=== PATIENT | female | born 2000 | race Hispanic/Latino ===

== ENCOUNTER 2019-06-18 10:03 | Inpatient (IN) | payer MEDICAID, OTHER, SELFPAY ==
[~2019-06-18 10:03] MED LIST: Bupivacaine/Epinephrine 0.25% 30 ML VIAL ONE
[2019-06-18] MEDS ORDERED: hydrALAZINE 20 MG/ML VIAL SLOW IVP PRN ×2 (11:41→12:09)
[2019-06-18] MEDS ORDERED: Lidocaine 1% (PF) 30 ML VIAL ONE ×2 (11:46→22:04)
--- NOTE | 2019-06-18 12:05 | PDOC.FPROB ---
FMR OB H&P: HPI - History of Present Illness Chief Complaint: Contractions, vaginal bleeding History of Present Illness: 19yo @ 37.3 by LMP c/w 17.5wk cooper presents for contractions and vaginal bleeding since 1000 yesterday. Pt states contractions are a pelvic pressure that radiates to the flanks, occurring initially every few minutes but has spaced to every 5 minutes and now stable at that time for the past few hours. Also endores vaginal bleeding, described as less than her period but with clots and constant. No LOF. Endorses good movement. Endorses a slight TRISTAN, similar to past TRISTAN's, no vision changes, no acute SOB, no CP, n/v/d/c, fever/chills. Was last seen at [facility] on Saturday for US, was told baby was head down and had descended from previous ultrasounds. No New partners since conception, no recent sexual intercourse, no history of STI's. Primary Care Physician: [facility] Silvia Mcbride FMR OB H&P: Current - Care : 1 Para: 0 Gestational age: 37.3 Due date: 07/06/19 Dating Criteria: LMP c/w 17.5wk sono Course/Complications: BV x1 Anemia of - OB Labs Blood type: O RH: positive Antibody Screen: negative HIV: negative RPR: negative HepBsAg: negative Rubella: immune Urine drug screen: negative Gonorrhea: negative Chlamydia: negative Pap Smear: NILM 02/23/19 1 hour gtt: 90 GBS: negative H&H: 10.3 on 03/24/19 - Additional Ultrasound Additional: March posterior placenta, [place] 33.8% US today - Vertex with Occipital Maternal left FMR OB H&P: History - Past Medical History PMH: None - OB History OB History: None - 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 Denies EtOH, tob, illicit use. - Family History Family History: First degree relative with T21. Otherwise no history of complications or pediatric illnesses. FMR OB H&P: Medications - Current Home Medications: Medication Instructions Recorded Confirmed Type Pnv72/Iron,Gluc/Folic/Dss/Dha 1 tab PO DAILY 06/18/19 06/18/19 History [Citranatal 90 DHA Combo Pack] Allergies/Adverse Reactions: Allergies Allergy/AdvReac Type Severity Reaction Status Date / Time No Known Allergies Allergy Verified 06/18/19 12:35 FMR OB H&P: ROS - Review of Systems General: denies: fever/chills, weight/appetite/sleep changes, fatigue Eyes: denies: vision changes, double vision ENT: denies: nasal congestion, rhinorrhea, sore throat Cardiovascular: denies: chest pain, palpitation, edema Respiratory: reports: shortness of breath (chronic progession during , no acute changes). 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 pain radiates to flanks). denies: incontinence, dysuria, polyuria, hesitancy Neurologic: denies: numbness, syncope, seizures Integumentary: denies: rash FMR OB H&P: Vital Signs - Maternal Vital signs: BP 132/81, HR 86, RR 18, 98% on RA, 98.7F - Heart Tones Baseline: 140 Variability: moderate Acceleration: present Deceleration: absent Category: category 1 [place] contractions every: 5min FMR OB H&P: Physical Exam - Physical Exam General: NAD, awake, alert and oriented (resting and breathing throught contractions) HEENT: MMM, conjunctiva clear Neck: supple, trachea midline Heart: RRR, normal S1/S2, no murmurs/rubs/gallops, pulses present, no edema General: CTAB, no respiratory distress, good air movement, no rales/rhonchi, no wheezing Abdomen: soft, gravid, non-tender, bowel sound present, no masses Musculoskeletal: normal gait and station, other (soreness of paraspinal muscles on palpation) Neurological: no tremor, no focal deficit Skin: no rash Lymphatic: no unusual bruising or bleeding - Pelvic Exam SVE: /-1 Membranes: intact FMR OB H&P: A/P - Problem List (1) Intrauterine Current Visit: Yes Status: Acute Code(s): Z34.90 - ENCNTR FOR SUPRVSN OF NORMAL , UNSP, UNSP TRIMESTER Disposition: 19yo @ 37.3 by LMP c/w 17.5wk sono presents for contractions and vaginal bleeding since 1000 on 06/17. #SIUP, latent labor - @ 37.3 by LMP c/w 17.5wk sono - Regular painful contractions q5min since 1000 yesterday with bloody show - GBS negative, labs unremarkable - Cat 1 FHT, accels, baseline 140, moderate variability, no decels - /-1 @1145, next check at 1545 - Bedside US - Vertex with occiput maternal left - desires epidural - Will admit for labor management, routine labor admission labs, will monitor FHT and maternal vitals #Anemia of - Hb 10.3 on 03/24/19 - Admit H/H pending, will monitor especially after delivery #h/o BV - tx'ed during - repeat testing negative, no new sxs #Family history of T21 - first degree relative with T21, no genetic screening performed. Referred to [facility], no records of visit. Normal US in past - will monitor at delivery #Recent immigrant from [facility] - Unknown TB status, PCP recommended testing, no sxs, will need f/u post- Dispo: Admit for expectant labor management Fluids: LR @125cc/hr Code: Full Diet: NPO with ice chips Discussed plan with Dr. Deshpande
[2019-06-18] MEDS ORDERED: Ondansetron PF 4 MG/2 ML Vial IVP PRN ×2 (12:09→18:49)
[2019-06-18] MEDS ORDERED: Promethazine HCl 25 MG/ML VIAL IM PRN ×2 (12:09→18:49)
[2019-06-18 12:23] LABS: Hemoglobin 12.7 g/dL (12.0-16.0); Mean Corpuscular HGB CONC 34.4 g/dL (32.0-36.0); Mean Corpuscular Hemoglobin 30.4 pg (27.0-31.0); Mean Corpuscular Volume 88.4 fL (78.0-98.0); Mean Platelet Volume 10.2 fL (7.4-10.4); Platelet Count 206 thou/uL (130-400); RBC Distribution Width 11.8 % (11.5-14.5); Red Blood Cell (RBC) Count 4.17 mill/uL (4.20-5.40); White Blood Cell (WBC) Count 9.9 thou/uL (4.8-10.8)
[2019-06-18] MEDS ORDERED: Butorphanol Tartrate 1 MG/ML VIAL ONE (12:27)
[2019-06-18] MEDS ORDERED: NS / Oxytocin 40 units/1000ml 1,000 ML IV PRN (12:27)
[2019-06-18] MEDS ORDERED: Lidocaine 1% (PF) 30 ML VIAL SC PRN (12:27)
[2019-06-18] MEDS ORDERED: Lidocaine 1% (PF) 30 ML VIAL SC SCH (12:30)
[2019-06-18 12:39] VITALS: BMI 25.9
[2019-06-18 13:06] LABS: HBSAg Index 0.12 S/CO (0-0.99); Hep B Surf Ag Non-Reactive S/CO (NonReactive)
[2019-06-18 13:07] LABS: Syphilis Antibody Nonreactive (Nonreactive); Syphilis Antibody Index 0.04 S/CO (<1.00 Non-Reactive)
[2019-06-18] MEDS ORDERED: NS w/ Oxytocin 10 units 500 ML IV SCH ×2 (16:00)
[2019-06-18] MEDS ORDERED: NS w/ Oxytocin 10 units 500 ML ONE (16:00)
--- NOTE | 2019-06-18 16:01 | PDOC.LDPN ---
Labor & Delivery Progress Note - Subjective Subjective: comfortable, no concerns - Objective Vital signs reviewed and normal: yes General: NAD, resting, breathing through contractions Uterine fundus: non tender Dilation: 6 Effacement: 75% (80) Station: 0 FHT: category 1 (accels, no decels, moderate variability, baseline 140), variability present [place] contractions every: 4-5 min - Assessment (1) Intrauterine Code(s): Z34.90 - ENCNTR FOR SUPRVSN OF NORMAL , UNSP, UNSP TRIMESTER Current Visit: Yes Status: Acute Plan: continue plan of care, pitocin for augmentation -: 19yo @ 37.3 by LMP c/w 17.5wk sono presents for contractions and vaginal bleeding, admitted for expectant labor management #SIUP, active labor - @ 37.3 by LMP c/w 17.5wk sono - GBS negative, labs unremarkable - Bedside US - Vertex with occiput maternal left at admit - Cat 1 FHT, accels, baseline 140, moderate variability, no decels - 6/80/0 soft, mid placement @1530, next check in 2hrs at 1730 - [place] 11 - will start pit for augmentation of labor and titrate prn - consider AROM at next check - still deciding on epidural - will continue expectant labor management, next check in 2hrs #Anemia of - Hb 10.3 on 03/24/19 - Admit H/H pending, will monitor especially after delivery #h/o BV - tx'ed during - repeat testing negative, no new sxs #Family history of T21 - first degree relative with T21, no genetic screening performed. Referred to [facility], no records of visit. Normal US in past - will monitor at delivery #Recent immigrant from [facility] - Unknown TB status, PCP recommended testing, no sxs, will need f/u post- Dispo: Admitted for expectant labor management Fluids: LR @125cc/hr Code: Full Diet: NPO with ice chips Discussed plan with Dr. Desphande
[2019-06-18] MEDS: Lactated Ringer's 1,000 ML IV SCH (17:22)
[2019-06-18] MEDS ORDERED: Lidocaine 1.5%/Epinephrine 1:200,000 5 ML AMPUL IJ ONE (17:32)
[2019-06-18] MEDS ORDERED: Fentanyl 4 mcg/Bup 0.1% Cadd 100 ML ONE (17:33)
--- NOTE | 2019-06-18 17:37 | PDOC.LDPN ---
Labor & Delivery Progress Note - Subjective Subjective: comfortable, painful contractions - Objective Vital signs reviewed and normal: yes General: NAD, resting, breathing through contractions Uterine fundus: non tender Dilation: 7 Effacement: 90% Station: 1+ FHT: category 1 (accels, no decels, Baseline 140, moderate variability), variability present [place] contractions every: 2-3min - Assessment (1) Intrauterine Code(s): Z34.90 - ENCNTR FOR SUPRVSN OF NORMAL , UNSP, UNSP TRIMESTER Current Visit: Yes Status: Acute Plan: continue plan of care, pitocin for augmentation, other (epidural ) -: 19yo @ 37.3 by LMP c/w 17.5wk sono presents for contractions and vaginal bleeding, admitted for expectant labor management #SIUP, active labor - @ 37.3 by LMP c/w 17.5wk sono - GBS negative, labs unremarkable - Bedside US - Vertex with occiput maternal left at admit - Cat 1 FHT, accels, baseline 140, moderate variability, no decels - @1730, next check in 2hrs at 1930 - On pit, titrate prn - after long discussion using brim curler and with anesthesia present, pt has decided to proceed with epidural placement, thus we will hold on AROM until after epidural placed, consider AROM at next check - will continue expectant labor management, next check in 2hrs #Anemia of - Hb 10.3 on 03/24/19 - Admit H/H pending, will monitor especially after delivery #h/o BV - tx'ed during - repeat testing negative, no new sxs #Family history of T21 - first degree relative with T21, no genetic screening performed. Referred to [facility], no records of visit. Normal US in past - will monitor at delivery #Recent immigrant from [facility] - Unknown TB status, PCP recommended testing, no sxs, will need f/u post- Dispo: Admitted for expectant labor management, getting epidural now, will check and consider AROM in 2 hours. Fluids: LR @125cc/hr Code: Full Diet: NPO with ice chips Discussed plan with Dr. Deshpande
[2019-06-18] MEDS ORDERED: Naloxone HCl 0.4 mg/ml Vial IVP PRN ×2 (18:49)
[2019-06-18] MEDS ORDERED: ePHEDrine/0.9% NaCl/PF SYRINGE 50 mg/10 ml SLOW IVP PRN (18:49)
[2019-06-18] MEDS ORDERED: diphenhydrAMINE 50 MG/ML VIAL IVP PRN (18:49)
[2019-06-18] MEDS ORDERED: Communication Order-Pharmacy FS SCH (19:00)
[2019-06-18] MEDS ORDERED: Lactated Ringer's 500 ML IV PRN (19:00)
[2019-06-18] MEDS ORDERED: Fentanyl 4 mcg/Bupivacaine 0.1% Cassette 100 ML EPIDURAL SCH (19:00)
--- NOTE | 2019-06-18 19:40 | PDOC.LDPN ---
Labor & Delivery Progress Note - Subjective Subjective: painful contractions - Objective Vital signs reviewed and normal: yes General: breathing through contractions SVE: FHT: category 1, variability present [place] contractions every: 2min Plan: continue plan of care, pitocin for augmentation -: 19yo @ 37.3 by LMP c/w 17.5wk sono presents for contractions and vaginal bleeding, admitted for expectant labor management #SIUP, active labor - @ 37.3 by LMP c/w 17.5wk sono - GBS negative, labs unremarkable - Bedside US - Vertex with occiput maternal left at admit - Cat 1 FHT, accels, baseline 140, moderate variability, no decels - @1999, anticipate arom soon - On pit, titrate prn - epidural placed - will continue expectant labor management, next check in 2hrs #hx of seizures -family just disclosed that patient has a history of seizures, both before and in January of this year -family states patient was on medication in [facility] but did not bring it with her -possible seizure activity during shift change per nursing report, patient had fasiculations and is now difficult to arouse -prolactin, cbc, cmp, urine protein/creatinine, uds, blood tox, ekg -will continue to evaluate #hx of glaucoma -family just disclosed that patient has a hx of glaucoma, was on medication before but has not been recently -tonometer to assess for eye pressure #Anemia of - Hb 10.3 on 03/24/19 - Admit H/H 12.7/36.9 #h/o BV - tx'ed during - repeat testing negative, no new sxs #Family history of T21 - first degree relative with T21, no genetic screening performed. Referred to [facility], no records of visit. Normal US in past - will monitor at delivery #Recent immigrant from [facility] - Unknown TB status, PCP recommended testing, no sxs, will need f/u post- Dispo: Admitted for expectant labor management, has epidural, will f/u labs and continue to evaluate Fluids: LR @125cc/hr Code: Full Diet: NPO with ice chips Discussed plan with Dr. Deshpande
[2019-06-18 20:46] LABS: #Basophils 0.1 thou/uL (0.0-0.2); #Lymphocytes 1.5 thou/uL (1.20-3.40); #Monocytes 0.6 thou/uL (0.11-0.59); #Neutrophils 9.7 thou/uL (1.40-6.50); %Basophils 0.4 % (0.0-1.0); %Lymphocytes 12.3 % (21.0-51.0); %Monocytes 5.2 % (0.0-10.0); Hemoglobin 11.3 g/dL (12.0-16.0); Mean Corpuscular HGB CONC 35.3 g/dL (32.0-36.0); Mean Corpuscular Volume 87.7 fL (78.0-98.0); Mean Platelet Volume 9.4 fL (7.4-10.4); Platelet Count 199 thou/uL (130-400); RBC Distribution Width 11.8 % (11.5-14.5); Red Blood Cell (RBC) Count 3.65 mill/uL (4.20-5.40); White Blood Cell (WBC) Count 11.9 thou/uL (4.8-10.8)
[2019-06-18 21:05] LABS: Amphetamine Not Detected (NotDetected); Barbiturates Screen Not Detected (NotDetected); Benzodiazepine Screen Not Detected (NotDetected); Cocaine Metabolite Screen Not Detected (NotDetected); Medtox Control Line Valid? VALID (VALID); Medtox Reader # READER 4; Methadone Not Detected (NotDetected); Methamphetamine Not Detected (NotDetected); Opiate Screen Not Detected (NotDetected); Oxycodone Screen Not Detected (NotDetected); Phencyclidine (PCP) Not Detected (NotDetected); THC/Cannabinoid Screen Not Detected (NotDetected); Tricyclic Screen Not Detected (NotDetected)
[2019-06-18 21:09] LABS: ALT (SGPT) 180 U/L (8-55); AST (SGOT) 158 U/L (5-34); Acetaminophen Less than 6.0 mcg/mL (10.0-30.0); Albumin 3.4 g/dL (3.5-5.0); Alcohol Less than 10 mg/dL (Less than 10); Alkaline Phosphatase 244 U/L (40-110); Anion Gap 12 mmol/L (10-20); BUN (Urea Nitrogen) 6 mg/dL (7.0-18.7); Calc. Creatinine Clearance 139 mL/min (70-130); Calcium 9.1 mg/dL (7.8-10.44); Carbon Dioxide 23 mmol/L (22-29); Chloride 104 mmol/L (98-107); Estimated GFR-MDRD Greater than 90; Globulin 3.3 g/dL (2.4-3.5); Glucose 72 mg/dL (70-105); Potassium 3.8 mmol/L (3.5-5.1); Protein, Total 6.7 g/dL (6.0-8.3); Salicylate Less than 8.0 mg/dL (15.0-30.0); Sodium 135 mmol/L (136-145)
[2019-06-18 21:11] LABS: Troponin I Less than 0.010 ng/mL (< 0.028)
--- NOTE | 2019-06-18 21:13 | PDOC.LDPN ---
Labor & Delivery Progress Note - Subjective Subjective: painful contractions - Objective General: breathing through contractions SVE: FHT: category 1, variability present [place] contractions every: 2min AROM: clear fluid Plan: pitocin for augmentation -: 19yo @ 37.3 by LMP c/w 17.5wk sono presents for contractions and vaginal bleeding, admitted for expectant labor management #SIUP, active labor - @ 37.3 by LMP c/w 17.5wk sono - GBS negative, labs unremarkable - Bedside US - Vertex with occiput maternal left at admit - Cat 1 FHT, accels, baseline 140, moderate variability, no decels - @2100, arom clear - On pit, titrate prn - epidural placed - will continue expectant labor management, next check in 2hrs #hx of seizures -family just disclosed that patient has a history of seizures, both before and in January of this year -family states patient was on medication in [facility] but did not bring it with her -possible seizure activity during shift change per nursing report, patient had fasiculations and is now difficult to arouse -prolactin, cbc, cmp, urine protein/creatinine, uds, blood tox, ekg; labs pending -will continue to evaluate #hx of glaucoma -family just disclosed that patient has a hx of glaucoma, was on medication before but has not been recently -tonometer showed pressure of 20 in left eye and 30 in right eye #Anemia of - Hb 10.3 on 03/24/19 - Admit H/H 12.7/36.9 #h/o BV - tx'ed during - repeat testing negative, no new sxs #Family history of T21 - first degree relative with T21, no genetic screening performed. Referred to [facility], no records of visit. Normal US in past - will monitor at delivery #Recent immigrant from [facility] - Unknown TB status, PCP recommended testing, no sxs, will need f/u post- Dispo: Admitted for expectant labor management, has epidural, will f/u labs and continue to evaluate Fluids: LR @125cc/hr Code: Full Diet: NPO with ice chips Discussed plan with Dr. Deshpande
[2019-06-18 21:48] LABS: Creatinine, Urine 81.9 mg/dL (47-110)
[2019-06-18] MEDS ORDERED: Calcium Gluc 4.6 MEQ/10 ML (100 MG/ML) SLOW IVP PRN (21:55)
[2019-06-18] MEDS ORDERED: Magnesium Sulfate 20 GM/WATER 500 ML BAG IVPB SCH (22:00)
[2019-06-18] MEDS ORDERED: NS / Oxytocin 40 units/1000ml 1,000 ML ONE (22:05)
[2019-06-18] MEDS ORDERED: Magnesium Sulfate 20 gm/500 ml 20 GM/500 ML BAG IVPB SCH (22:20)
[2019-06-18] MEDS ORDERED: Misoprostol 200 MCG TAB ONE (22:37)
--- NOTE | 2019-06-18 23:14 | PDOC.OPDEL ---
OB Operative/Delivery Note - Additional Findings/Plan Compilations/Other Findings: Delivering Physician: Dr. Alejandra, Dr. Henao Attending: Dr. Deshpande Procedure: Spontaneous Vaginal Delivery Anesthesia: epidural QBL: 504 ml Pre-op Diagnosis: 1. Term intrauterine in labor 2. Hx of anemia of 3. Hx of seizures 4. Hx of glaucoma 5. H/x BV treated during 6. Family Hx of T21, no genetic screening performed 7. Recent immigrant from [facility] Post-op Diagnosis: 1. Term intrauterine , delivered 2. same as above Indications: A 19y/o female presents in active labor Delivery Note: This is 19yo F now P1 @ 37.3wks who delivered a viable M at 2223. Following an uneventful antepartum course, a vigorous male was delivered over an intact perineum in the OA position. Anterior Shoulder and then remainder of the body delivered. No nuchal cord. The head was held down and mouth and nares were bulb suctioned. Cord clamped after delayed cord clamping and cut and cord blood collected. Placenta delivered intact in the Sy[place] presentation with a 3 vessel cord noted. Fundal massage was performed and the fundus was firm. The cervix and vagina were inspected and found to be free of lacerations. There was a small left labial tear noted that was hemostatic without repair. Infant went to nursery in good condition for routine care. Apgars were 9/9 at 1 & 5 minutes, respectively. Patient tolerated delivery well and went to after routine recovery/care. Addendum - Attending - Attending Attestation Date/Time: 06/20/19 [id number] I personally evaluated the patient and discussed the management with Dr. Alejandra I agree with the History, Examination, Assessment and Plan documented above with any addition or exceptions noted below. I was present for the entire 2nd and third stages of labor supervising management of delivery.
[2019-06-19] MEDS: Acetaminophen 325 MG TAB PO PRN (01:15)
[2019-06-19] MEDS ORDERED: Lanolin Ointment 7 GM TUBE TOP PRN (01:58)
[2019-06-19] MEDS ORDERED: Bisacodyl 10 MG SUPP PR PRN (01:58)
[2019-06-19] MEDS ORDERED: Benzocaine-Menthol 82.5 ML CAN TOP PRN (01:58)
[2019-06-19] MEDS ORDERED: hydrALAZINE 20 MG/ML VIAL SLOW IVP PRN (01:58)
[2019-06-19] MEDS ORDERED: diphenhydrAMINE 25 MG CAP PO PRN (01:58)
[2019-06-19] MEDS ORDERED: Preparation H Ointment 28 GM TUBE PR PRN (01:58)
[2019-06-19] MEDS ORDERED: Milk Of Magnesia 30 ML UDCUP PO PRN (01:58)
[2019-06-19] MEDS: Lactated Ringer's 1,000 ML IV SCH ×2 (02:06→06:17)
--- NOTE | 2019-06-19 05:39 | PDOC.OBPPN ---
FMR OB PN: Subj - Interval History Hospital Day: 1 Day: 1 Pt is doing well this morning, complaining of lower abdominal cramping but controlled with tylenol and does not wish for any stronger pain medications. She is very anxious but overall happy. Urine catheter in place, no n/v. Lochia slightly more than normal period. Mild TRISTAN, no vision changes, no RUQ pain, no LE edema, no SOB or CP. No seizure-like activity. Did have one episode of BP elevated to 170/123 but pt was crying and very upset because baby was not in the room, repeat BP after calming down was 130s/80s and has remained stable since. Per report, pt had seizure-like activity post-delivery with episode of fasiculations, decreased responsiveness and lasted a few seconds followed by post-itcal state. Was started on Mag, labs drawn, Randhawa placed, and BP monitored. Further questioning of family releaved pt has history of seizure disorder, no current medications since immigration. Pt also has history of possibly glaucoma and was using drops back in [facility]. Chief Complaint: Post FMR OB PN: Obj - Maternal Vital signs: BP: 120s-130s/80 with one episode of 175/126. Pox: [100]% on [RA] - Urine output I&O: 06/17/19 06/18/19 06/19/19 06:59 06:59 06:59 Output Total 1383 Balance -1383 - Lochia Lochia: As expected, more than period with clots. - Pain Management Intervention: oral medication (tylenol) FMR OB PN: Exam - Physical Exam General: NAD, awake, alert and oriented HEENT: EOMI, MMM, conjunctiva clear Neck: supple, trachea midline Heart: RRR, normal S1/S2, no murmurs/rubs/gallops, pulses present, no edema General: CTAB, no respiratory distress, good air movement, no rales/rhonchi, no wheezing Abdomen: soft, non-tender, bowel sound present, other (uterus firm and located at level of umbilicus) Neurological: DTR +2 (bilateral UE), no clonus, no tremor, no focal deficit Skin: no rash, good tugor Psychiatric: other (anxious but happy, quiet but will answer questions with prompting) - Pelvic Exam : normal lochia FMR OB PN: Data - Labs Lab results: Laboratory Results - last 24 hr 06/18/19 06/18/19 06/18/19 12:15 12:15 12:15 WBC RBC Hgb Hct MCV MCH MCHC RDW Plt Count MPV Neutrophils % Lymphocytes % Monocytes % Eosinophils % Basophils % Neutrophils # Lymphocytes # Monocytes # Eosinophils # Basophils # Sodium Potassium Chloride Carbon Dioxide Anion Gap BUN Creatinine Estimated GFR (MDRD) Glucose Calcium Magnesium Total Bilirubin AST ALT Alkaline Phosphatase Troponin I Serum Total Protein Albumin Globulin Albumin/Globulin Ratio Prolactin U Random Total Protein Urine Creatinine Salicylates Urine Opiates Screen Ur Oxycodone Screen Urine Methadone Screen Ur Propoxyphene Screen Acetaminophen Ur Barbiturates Screen Ur Tricyclics Screen Ur Phencyclidine Scrn Ur Amphetamines Screen U Methamphetamines Scrn U Benzodiazepines Scrn U Cocaine Metab Screen U Cannabinoids Screen Drug Screen Comment Plasma Alcohol Syphilis IgG/IgM Ab Nonreactive Hep Bs Antigen Non-Reactive Blood Type O POSITIVE Antibody Screen NEGATIVE 06/18/19 06/18/19 06/18/19 12:15 12:44 20:32 WBC 9.9 RBC 4.17 L Hgb 12.7 Hct 36.9 MCV 88.4 MCH 30.4 MCHC 34.4 RDW 11.8 Plt Count 206 MPV 10.2 Neutrophils % Lymphocytes % Monocytes % Eosinophils % Basophils % Neutrophils # Lymphocytes # Monocytes # Eosinophils # Basophils # Sodium 135 L Potassium 3.8 Chloride 104 Carbon Dioxide 23 Anion Gap 12 BUN 6 L Creatinine 0.61 Estimated GFR (MDRD) Greater than 90 Glucose 72 Calcium 9.1 Magnesium Total Bilirubin 1.0 AST 158 H ALT 180 H Alkaline Phosphatase 244 H Troponin I Serum Total Protein 6.7 Albumin 3.4 L Globulin 3.3 Albumin/Globulin Ratio 1.0 L Prolactin U Random Total Protein Urine Creatinine Salicylates Less than 8.0 L Urine Opiates Screen Ur Oxycodone Screen Urine Methadone Screen Ur Propoxyphene Screen Acetaminophen Less than 6.0 L Ur Barbiturates Screen Ur Tricyclics Screen Ur Phencyclidine Scrn Ur Amphetamines Screen U Methamphetamines Scrn U Benzodiazepines Scrn U Cocaine Metab Screen U Cannabinoids Screen Drug Screen Comment Plasma Alcohol Less than 10 Syphilis IgG/IgM Ab Hep Bs Antigen Blood Type O POSITIVE Antibody Screen 06/18/19 06/18/19 06/18/19 20:32 20:32 20:32 WBC 11.9 H RBC 3.65 L Hgb 11.3 L Hct 32.0 L MCV 87.7 MCH 31.0 MCHC 35.3 RDW 11.8 Plt Count 199 MPV 9.4 Neutrophils % 82.0 H Lymphocytes % 12.3 L Monocytes % 5.2 Eosinophils % 0.0 Basophils % 0.4 Neutrophils # 9.7 H Lymphocytes # 1.5 Monocytes # 0.6 H Eosinophils # 0.0 Basophils # 0.1 Sodium Potassium Chloride Carbon Dioxide Anion Gap BUN Creatinine Estimated GFR (MDRD) Glucose Calcium Magnesium Total Bilirubin AST ALT Alkaline Phosphatase Troponin I Less than 0.010 Serum Total Protein Albumin Globulin Albumin/Globulin Ratio Prolactin 347.71 H U Random Total Protein Urine Creatinine Salicylates Urine Opiates Screen Ur Oxycodone Screen Urine Methadone Screen Ur Propoxyphene Screen Acetaminophen Ur Barbiturates Screen Ur Tricyclics Screen Ur Phencyclidine Scrn Ur Amphetamines Screen U Methamphetamines Scrn U Benzodiazepines Scrn U Cocaine Metab Screen U Cannabinoids Screen Drug Screen Comment Plasma Alcohol Syphilis IgG/IgM Ab Hep Bs Antigen Blood Type Antibody Screen 06/18/19 06/18/19 06/18/19 20:32 20:33 20:33 WBC RBC Hgb Hct MCV MCH MCHC RDW Plt Count MPV Neutrophils % Lymphocytes % Monocytes % Eosinophils % Basophils % Neutrophils # Lymphocytes # Monocytes # Eosinophils # Basophils # Sodium Potassium Chloride Carbon Dioxide Anion Gap BUN Creatinine Estimated GFR (MDRD) Glucose Calcium Magnesium 1.6 Total Bilirubin AST ALT Alkaline Phosphatase Troponin I Serum Total Protein Albumin Globulin Albumin/Globulin Ratio Prolactin U Random Total Protein 36 H Urine Creatinine 81.90 Salicylates Urine Opiates Screen Not Detected Ur Oxycodone Screen Not Detected Urine Methadone Screen Not Detected Ur Propoxyphene Screen Not Detected Acetaminophen Ur Barbiturates Screen Not Detected Ur Tricyclics Screen Not Detected Ur Phencyclidine Scrn Not Detected Ur Amphetamines Screen Not Detected U Methamphetamines Scrn Not Detected U Benzodiazepines Scrn Not Detected U Cocaine Metab Screen Not Detected U Cannabinoids Screen Not Detected Drug Screen Comment Plasma Alcohol Syphilis IgG/IgM Ab Hep Bs Antigen Blood Type Antibody Screen FMR OB PN: A/P - Problem List (1) Intrauterine Current Visit: Yes Status: Resolved Code(s): Z34.90 - ENCNTR FOR SUPRVSN OF NORMAL , UNSP, UNSP TRIMESTER (2) Preeclampsia Current Visit: Yes Status: Acute Code(s): O14.90 - UNSPECIFIED PRE-ECLAMPSIA , UNSPECIFIED TRIMESTER (3) Seizure disorder Current Visit: Yes Status: Chronic Code(s): G40.909 - EPILEPSY, UNSP, NOT INTRACTABLE, WITHOUT STATUS EPILEPTICUS Disposition: 19yo @ 37.3 by LMP c/w 17.5wk sono presents in labor, delivered a TAGA male at 2223 on 06/18 via , small left labial tear without repair. Pt then experience seizure-like activity, diagnosed with PreE with chronic seizure disorder vs Eclampsia #, PPD #1 - @ 37.3 by LMP c/w 17.5wk sono - GBS negative, labs unremarkable - Delivered TAGA male infant @ 2223 on 06/18 via , small left labial tear without needing repair, QBL 504cc #Seizure-like activity, Eclampsia vs chronic seizure disorder - family disclosed patient has a history of seizures, both before and in January of this year; was on meds in [facility] but has not been since immigration, will try to obtain further history and records today - possible seizure activity , patient had fasciculations and was difficult to arouse with slight post-ictal state per report - Pt started on Mag for 24 hours - prolactin elevated at 347 but appropriate for blood tox neg, lytes WNL - will continue to evaluate, consider Neurology consult for assistance once further history obtained from family/pt #PreE with severe features, possibly eclampsia vs chronic seizure disorder - BP elevated > 160 systolic at delivery and immediately post , had one episode of 176/126 this morning, all other BPs have been 120s-130s/80s - AST 158, ALT 180, Pr/Cr 0.4 - will continue 24hr mag with q4h mag checks - will monitor closely #Leukocytosis - WBC 19.2, up from 9.9 at admit - likely reactive from seizure activity, VSS and afebrile, no acute signs of infection, will monitor closely #Elevated LFTs - Likely 2/2 PreE vs seizure activity - will obtain Hep panel 2/2 recent immigration, will monitor #hx of glaucoma - family disclosed that patient has a hx of glaucoma, was on medication before but has not been recently - tonometer showed pressure of 20 in left eye and 30 in right eye - will obtain further history from pt and family today and consider Optho consult vs OP f/u #Anemia of , stable - HB 12 at admit, down to 9.8 , lochia as expected, will monitor. Asymptomatic. #Recent immigrant from [facility] - Unknown TB status, PCP recommended testing, no sxs, will need f/u post- Dispo: PPD #1, new onset PreE with severe features and seizure-like activity - Eclampsia vs chronic seizure disorder, will evaluate further and monitor closely. On Mag with q4h mag checks. Fluids: LR @125cc/hr Code: Full Diet: Regular Discussed plan with Dr. Deshpande Discussion: Date/Time: 06/19/19 9269 This H&P was discussed with [] and [] who agree with the above documentation and plan. Addendum - Attending - Attending Attestation Date/Time: 06/20/19 3856 I personally evaluated the patient and discussed the management with Dr. Young I agree with the History, Examination, Assessment and Plan documented above with any addition or exceptions noted below. vital signs have been reviewed and are primarily normal range with isolated mild range and single severe range bp. Post course has been uncomplicated. Pt in magnesium for sz prophylaxis in the setting of preeclampsia and possible seizure activity. PT has a reported h/o of sz disorder that in the past had been managed by a physician on [facility]. Will obtain Neurology consult to assist in assessment and medical management.
[2019-06-19] MEDS: Ibuprofen 800 MG TAB PO SCH ×2 (06:17→15:42)
[2019-06-19 06:41] LABS: #Basophils 0.1 thou/uL (0.0-0.2); #Lymphocytes 1.7 thou/uL (1.20-3.40); #Monocytes 0.9 thou/uL (0.11-0.59); #Neutrophils 16.5 thou/uL (1.40-6.50); %Basophils 0.3 % (0.0-1.0); %Lymphocytes 8.8 % (21.0-51.0); %Monocytes 4.9 % (0.0-10.0); Hemoglobin 9.8 g/dL (12.0-16.0); Mean Corpuscular Hemoglobin 30.8 pg (27.0-31.0); Mean Corpuscular Volume 88.2 fL (78.0-98.0); Mean Platelet Volume 9.6 fL (7.4-10.4); Platelet Count 189 thou/uL (130-400); RBC Distribution Width 11.5 % (11.5-14.5); Red Blood Cell (RBC) Count 3.17 mill/uL (4.20-5.40); White Blood Cell (WBC) Count 19.2 thou/uL (4.8-10.8)
--- NOTE | 2019-06-19 08:28 | PRG ---
DATE OF SERVICE: 06/19/2019 The patient is a 19-year-old female, who presented yesterday in active labor and delivered last night around 2300 by term spontaneous vaginal delivery a little girl. During her labor course, there is some question of whether she had a seizure versus stress-related events. The patient's family reports that she has been diagnosed with seizure disorder. Her workup yesterday suggested preeclampsia and was placed on magnesium. This morning, the patient is much more alert. She reports that she does have a seizure disorder. Her last seizure prior to this was in January and prior to that about a year ago. She says she was diagnosed by a doctor in [facility], but was never placed on any medication. For further details of her course, please refer to the resident note, but the patient is without complications. Blood pressures have been primarily in the normal to mild range. She has had one severe range pressures since delivery. We will be asking Neurology to come and evaluate the patient to determine whether his opinion needs to be placed on any anti-seizure medication. Seizure seemed to be more of an absent or petit mal seizure as there was no any obvious violent episode. Vital signs this morning again are within normal limits. She is in no acute distress. Please refer to the resident note for complete details. Job ID: [id number]
--- NOTE | 2019-06-19 08:30 | PDOC.EVN ---
Event Note - Event Note Event Note: KRISTY Gibbons Note Assumed care this AM: handoff recieved from other MD Patient s/p yesterday with unclear "siezure" at around 1900. Unclear SZ HX (patient from [facility]...states was on meds prior). She is currently on Mag for possible Eclampsia due to the SZ and elevated LFTs...we have also drawn Hep panel this AM. Patient also with unclear HX of "eye issue"...took drops in past but unclear name. Assessment: PP SZ activity Eclampsia vs other Plan: 1. continue Mag for now 2. Neuro eval requested by Dr Deshpande 3. Check Hep Panel 4. Optho as outpatient 5. Consider head imaging 6. Residents to follow
[2019-06-19] MEDS ORDERED: Adacel (T-DAP) 0.5 ML SYRINGE IM ONE (09:00)
[2019-06-19 09:29] LABS: HBCM Index 0.05 S/CO (0-0.79); HBSAg Index 0.19 S/CO (0-0.99); Hep A IgM AB Non-Reactive (NonReactive); Hep B Surf Ag Non-Reactive S/CO (NonReactive); Hep C IgG Ab Non-Reactive (NonReactive); Hep C Index 0.04 S/CO (0-0.79); Hepatitis B Core IgM Abs Non-Reactive (NonReactive)
[2019-06-19] MEDS: Ferrous Sulfate 325 MG TAB PO SCH (10:18)
[2019-06-19] MEDS: Docusate Calcium (SURFAK) 240 MG CAP PO SCH (10:18)
[2019-06-19] MEDS: Prenatal Vitamin 1 TAB PO SCH (10:18)
--- NOTE | 2019-06-19 11:39 | PDOC.EVN ---
Event Note - Event Note Event Note: Mag Check S: Doing well, resting with baby and well. No difficulty breathing , no TRISTAN's,CP, SOB, fever/chills. No LE edema. O: I/O: -1383, adequate urine output BP max of 152/72, averaging 130s/80s since last check Gen: Well-appearing, , good spirits CV: RRR no murmurs Pulm: CTAB GI/: non-TTP, + BS, uterus firm located at umbilicus, appropriately tender Ext: no edema, 2+ reflexes BL A/P: 19yo @ 37.3 by LMP c/w 17.5wk cooper presents in labor, delivered a TAGA male at 2223 on 06/18 via , small left labial tear without repair. Pt then experience seizure-like activity, diagnosed with PreE with chronic seizure disorder vs Eclampsia - Pt is doing well, BP's stable, on mag, no alarm sxs, will continue current management and q4h mag checks while on mag for total 24 hours - Consulted Neurology, apprec recs. Still awaiting family to return to speak with regarding medical history of both seizures and possible glaucoma.
--- NOTE | 2019-06-19 12:07 | PRG ---
DATE OF SERVICE: 06/19/2019 TIME: Roughly 11:30 to 11:45. LOCATION: [facility] [place]. NEUROLOGY BEDSIDE CONSULTATION: In brief, this patient is currently on magnesium sulfate for suspected eclampsia versus prior seizure disorder. I was present for a telemedicine neurology consultation with Dr. Kraus. I served as asset card clerk at the bedside. I witnessed that the patient had a normal neurological exam conducted by Phillip, who was the neurology steam shovel operating engineer present. After discussing with Dr. Kraus on Telemedicine, we elected to put the patient on Keppra starting with a loading dose and also do a brain/head MRI to rule out other pathology. Currently, the patient is stable and doing well. Please see full dictation/consultation by Neurology. Job ID: [id number] MTDD
[2019-06-19] MEDS ORDERED: Gadobenate Dimeglumine 529 MG/1 ML (20ML VIAL) ONE (12:14)
--- NOTE | 2019-06-19 12:31 | PDOC.EVN ---
Event Note - Event Note Event Note: MRI: MRI is ready for the patient. They have requested we hold the mag. I will hold the mag until MRI complete as she is very stable. I dont want to miss the MR opportunity since mag will not be off until 2300 tonight and we may not have a tech for the MRI at that time. We will reload the mag once she is back
--- NOTE | 2019-06-19 14:20 | MRI ---
BRAIN MRI WITHOUT CONTRAST: Date: 06/19/19 COMPARISON: None. HISTORY: History of seizures. TECHNIQUE: Multiplanar, multiseqence MR imaging of the brain obtained without contrast. FINDINGS: The diffusion-weighted imaging demonstrates no evidence for acute infarction. The axial gradient echo imaging demonstrates no evidence for intracranial hemorrhage. No midline shift or mass effect. No ventricular enlargement is seen. Arterial flow-voids at the axial level of the skull base appear unremarkable on the T2-weighted imagi ng. The imaged paranasal sinuses and mastoid air cells are well aerated. Pituitary gland is prominent in the craniocaudal dimension, measuring approximately 1.0 cm. Pituitary gland demonstrates a superior convex border. Regional bone marrow signal intensity appears within normal limits. IMPRESSION: 1. No evidence for acute infarction or intracranial hemorrhage. No midline shift, mass effect, or ve ntricular enlargement. 2. Prominent pituitary gland as above. Recommend follow-up MRI with and without contrast using a pit uitary mass protocol. POS: OFF
--- NOTE | 2019-06-19 15:12 | PDOC.EVN ---
Event Note - Event Note Event Note: MRI with no brain bleed or mass....pituitary slightly enlarged...they request MR with and without contrast for pituitary protocol. We will start keppra now I have notfied the patient of the MR results now
--- NOTE | 2019-06-19 15:44 | PDOC.EVN ---
Event Note - Event Note Event Note: Mag Check: 1535 on 06/19/19 S: Patient is doing well, has no complaints. BPs have been well controlled, ranging from 123/84 to 144/88. Urine output has been very good, ranging from 240 -400 cc/hr. Neurology saw patient today and recommended starting keppra. Patient had Mag gtt held for brain MRI, as ordered by neuro. Mag was restarted when patient returned to the room. Brain MRI resulted showing no mass or hemorrhage, no midline shift. But did show a slightly enlarged pituitary gland at 1.0 cm. Recommended repeat brain MRI but this time with and without contrast for pituitary protocol. Mag being held until patient returns from MRI. O: BP 144/88 UO: >200 cc/hr Gen: No acute distress Card: RRR no murmurs, rubs Lungs: CTAB Ext: no cyanosis, 2+ reflexes b/l A/P: 19 yo @ 37.3 by LMP c/w 17.5 wk sono delivered TAGA male at 2223 on via . Pt experienced seizure like activity, diagnosed with PreE with chronic seizure disorder vs Eclampsia - Neuro consulted, starting Keppra - Brain MRI normal with exception of enlarged pituitary - repeating MRI with pituitary protocol - BPs have been well controlled on mag, no alarm sxs, Mag has been interrupted due to MRIs but will continue Mag once pt returns from MRI - continue q4h Mag checks for a total of 24 hours
--- NOTE | 2019-06-19 17:23 | MRI ---
BRAIN MRI WITH AND WITHOUT CONTRAST: 06/19/19 COMPARISON: None. HISTORY: Seizures, patient, prominent pituitary gland noted on prior noncontrast enhanced evaluati on. TECHNIQUE: Multiplanar and multisequence MRI imaging of the brain is obtained with and without contrast utilizin g a pituitary mass protocol. FINDINGS: The pituitary gland is prominent in the craniocaudal dimension, measuring up to approximately 8-9 mm. It has a superior convexed border extending into the suprasellar cistern but does not produce mass e ffect on the optic chiasm or the optic nerve. The regional bone marrow signal intensity appears withi n normal limits. Postcontrast imaging through the pituitary gland demonstrates a uniform enhancement pattern of the pituitary gland without a discrete pituitary mass lesion seen. The pituitary stalk is slightly thickened in transverse dimension but likely within normal limits jus t under 3 mm in transverse dimension. Whole brain postcontrast imaging demonstrates no abnormal enhancement within the brain parenchyma. This study is not tailored to evaluate the arterial structures. IMPRESSION: There is slight prominence of the pituitary stalk and the pituitary gland is prominent in the cranioc audal dimension. This is likely a function of the patient's state and within normal limits given patient age. The dynamic postcontrast imaging demonstrates no abnormal enhancement to suggest an underlying pituitary mass. In addition, the whole brain postcontrast imaging demonstrates no abnor mal enhancement. POS: NEAL
--- NOTE | 2019-06-19 17:34 | PDOC.EVN ---
Event Note - Event Note Event Note: Note on prolactin level: Rise may be due to , SZ activity, or a macroadenoma... Repeat MRI of pituitary shows gland is 8-9mm but the report doesnt suspect a mass, it may be effect? We should repeat the prolactin level later. Will order TSH
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
[2019-06-20] MEDS: Ferrous Sulfate 325 MG TAB PO SCH ×3 (01:04→17:15)
[2019-06-20] MEDS: Ibuprofen 800 MG TAB PO SCH ×4 (01:04→21:35)
[2019-06-20] MEDS: Docusate Calcium (SURFAK) 240 MG CAP PO SCH ×3 (01:04→21:35)
[2019-06-20] MEDS: Lactated Ringer's 1,000 ML IV SCH (01:04)
[2019-06-20] MEDS: Acetaminophen 325 MG TAB PO PRN (02:18)
--- NOTE | 2019-06-20 07:09 | PDOC.PP ---
Post Progress Note Post Day #: 2 Subjective: Doing well, no SZ...awaiting breast pump to pump milk for 24 hrs post IV contrast PO intake tolerated: yes Flatus: yes Ambulation: yes Vital Signs (12 hours) Temp 06/19/19 21:56 98.3 F Weight Weight 133 lb Vitals reviewed in QS - Physical Examination General: NAD Cardiovascular: no m/r/g Respiratory: clear to auscultation bilaterally Abdominal: + bowel sounds, lochia, no distention, appropriately TTP Extremities: negative homans (B) Neurological: no gross focal deficits Psychiatric: A&Ox3, normal affect Result Diagrams: 06/19/19 06:04 06/18/19 20:32 Additional Labs: Post Labs Blood Type O POSITIVE 06/18/19 12:44 Hep Bs Antigen Non-Reactive S/CO (NonReactive) 06/19/19 08:34 (1) Preeclampsia Code(s): O14.90 - UNSPECIFIED PRE-ECLAMPSIA, UNSPECIFIED TRIMESTER Status: Acute (2) Vaginal delivery Code(s): O80 - ENCOUNTER FOR FULL-TERM UNCOMPLICATED DELIVERY Status: Acute (3) Seizure disorder Code(s): G40.909 - EPILEPSY, UNSP, NOT INTRACTABLE, WITHOUT STATUS EPILEPTICUS Status: Chronic - Assessment/Plan s/p mag last PM...kept in L&D last night as obs. Plan to go to floor today. Likely home tomorrow on Keppra 500 po BID Needs neurology outpatient follow up TSH was normal
--- NOTE | 2019-06-20 07:18 | PDOC.EVN ---
Event Note - Event Note Event Note: Hep panel neg
[2019-06-20] MEDS: Prenatal Vitamin 1 TAB PO SCH (09:24)
[2019-06-20] MEDS: levETIRAcetam 500 MG TAB PO SCH ×2 (09:40→21:35)
--- NOTE | 2019-06-20 10:24 | PDOC.PP ---
Post Progress Note Post Day #: 3 Subjective: Esther Carranza seen at bedside this morning. She is doing well. States that she has no yet had a BM since being in the hospital. She was seen by Neuro this morning, who recommended continuing keppra and following up with Neurology outpatient for further work up. She is bleeding about like a period, no vaginal discharge. Denies any fever, chills, chest pain, dyspnea, n/v. PO intake tolerated: yes Flatus: yes Ambulation: yes Vital Signs (12 hours) Temp Pulse Resp BP Pulse Ox 06/20/19 08:10 99.3 F 66 16 141/83 H 98 Weight Weight 60.328 kg - Physical Examination General: NAD Cardiovascular: no m/r/g, RRR Respiratory: clear to auscultation bilaterally, non-labored breathing Abdominal: + bowel sounds, lochia, no distention, appropriately TTP Neurological: no gross focal deficits Psychiatric: A&Ox3, normal affect Result Diagrams: 06/19/19 06:04 06/18/19 20:32 Additional Labs: Post Labs Blood Type O POSITIVE 06/18/19 12:44 Hep Bs Antigen Non-Reactive S/CO (NonReactive) 06/19/19 08:34 (1) Preeclampsia Code(s): O14.90 - UNSPECIFIED PRE-ECLAMPSIA, UNSPECIFIED TRIMESTER Status: Acute (2) Vaginal delivery Code(s): O80 - ENCOUNTER FOR FULL-TERM UNCOMPLICATED DELIVERY Status: Acute (3) Seizure disorder Code(s): G40.909 - EPILEPSY, UNSP, NOT INTRACTABLE, WITHOUT STATUS EPILEPTICUS Status: Chronic - Assessment/Plan 19yo @ 37.3 by LMP c/w 17.5wk sono presented in labor, delivered a TAGA male at 2223 on 06/18 via , small left labial tear without repair. Pt then experience seizure-like activity, diagnosed with PreE with chronic seizure disorder vs Eclampsia #, PPD #3 - @ 37.3 by LMP c/w 17.5wk sono - GBS negative, labs unremarkable - Delivered TAGA male @ 2223 on 06/18 via , small left labial tear without needing repair, QBL 504cc - Continue routine care #Seizure-like activity, Eclampsia vs chronic seizure disorder - family disclosed patient has a history of seizures, both before and in January of this year; was on meds in [facility] but has not been since immigration, will try to obtain further history and records today - possible seizure activity , patient had fasciculations and was difficult to arouse with slight post-ictal state per report - Pt has completed Mag for 24 hours - prolactin elevated at 347 but appropriate for blood tox neg, lytes WNL - Neuro started keppra on 06/19, recommended patient cont keppra and follow up with Neuro as outpatient #PreE with severe features, possibly eclampsia vs chronic seizure disorder - BP elevated > 160 systolic at delivery and immediately post , had one episode of 176/126 this morning, all other BPs have been 120s-130s/80s - AST 158, ALT 180, Pr/Cr 0.4 - s/p Mag for 24 hours - will monitor closely #Leukocytosis - WBC 19.2, up from 9.9 at admit - likely reactive from seizure activity, VSS and afebrile, no acute signs of infection, will monitor closely #Elevated LFTs - Likely 2/2 PreE vs seizure activity - hep panel negative #hx of glaucoma - family disclosed that patient has a hx of glaucoma, was on medication before but has not been recently - tonometer showed pressure of 20 in left eye and 30 in right eye - consider outpatient ophtho follow up #Anemia of , stable - HB 12 at admit, down to 9.8 , lochia as expected, will monitor. Asymptomatic. #Recent immigrant from [facility] - Unknown TB status, PCP recommended testing, no sxs, will need f/u post- Dispo: PPD #3, clear for d/c from neuro perspective, will continue to monitor overnight. Likely d/c tomorrow. Fluids: LR @125cc/hr Code: Full Diet: Regular
--- NOTE | 2019-06-20 16:43 | PRG ---
DATE OF TELEMEDICINE SERVICE: 06/20/2019 CHIEF COMPLAINT: Seizure. INTERVAL HISTORY: The patient remained asymptomatic since yesterday. Today, mostly ER visit for discussion of her results. MRI was suspicious for possible pituitary mass and her final MRI report is consistent with her status. No pituitary tumor was detected. The patient was informed that she needs to continue to take Keppra and follow up with Dr. Mac. On examination, strength is normal. Gait is normal. The patient is awake, oriented, and appropriately conversing. Job ID: [id number] [facility]
[2019-06-21] MEDS: Ibuprofen 800 MG TAB PO SCH (05:32)
--- NOTE | 2019-06-21 06:29 | PDOC.PP ---
Post Progress Note Post Day #: 4 Subjective: Esther Carranza seen at bedside, along with Dr. Deshpande. She is doing well, she has no complaints. States pain is well controlled. She is ready for d/c today. She was seen by neuro on 06/20 who recommended Keppra 500 mg po bid as outpatient with follow up with Dr. Mca. She denies any fever, chills, chest pain, dyspnea, n/v. Bleeding is less than a period. PO intake tolerated: yes Flatus: yes Ambulation: yes Vital Signs (12 hours) Temp Pulse Resp BP Pulse Ox 06/21/19 00:55 98.2 F 59 L 18 124/62 06/20/19 20:05 98.0 F 75 18 129/73 98 Weight Weight 60.328 kg - Physical Examination General: NAD Cardiovascular: no m/r/g, RRR Respiratory: clear to auscultation bilaterally, non-labored breathing Abdominal: + bowel sounds, lochia, no distention, appropriately TTP Neurological: no gross focal deficits Psychiatric: A&Ox3, normal affect Result Diagrams: 06/19/19 06:04 06/18/19 20:32 Additional Labs: Post Labs Blood Type O POSITIVE 06/18/19 12:44 Hep Bs Antigen Non-Reactive S/CO (NonReactive) 06/19/19 08:34 (1) Preeclampsia Code(s): O14.90 - UNSPECIFIED PRE-ECLAMPSIA, UNSPECIFIED TRIMESTER Status: Acute (2) Vaginal delivery Code(s): O80 - ENCOUNTER FOR FULL-TERM UNCOMPLICATED DELIVERY Status: Acute (3) Seizure disorder Code(s): G40.909 - EPILEPSY, UNSP, NOT INTRACTABLE, WITHOUT STATUS EPILEPTICUS Status: Chronic - Assessment/Plan 19yo @ 37.3 by LMP c/w 17.5wk sono presented in labor, delivered a TAGA male at 2223 on 06/18 via , small left labial tear without repair. Pt then experience seizure-like activity, diagnosed with PreE with chronic seizure disorder vs Eclampsia #, PPD #4 - @ 37.3 by LMP c/w 17.5wk sono - GBS negative, labs unremarkable - Delivered TAGA male infant @ 2223 on 06/18 via , small left labial tear without needing repair, QBL 504cc - Continue routine care #Seizure-like activity, Eclampsia vs chronic seizure disorder - family disclosed patient has a history of seizures, both before and in January of this year; was on meds in [facility] but has not been since immigration, will try to obtain further history and records today - possible seizure activity , patient had fasciculations and was difficult to arouse with slight post-ictal state per report - Pt has completed Mag for 24 hours - prolactin elevated at 347 but appropriate for blood tox neg, lytes WNL - Neuro started keppra on 06/19, recommended patient cont keppra and follow up with Neuro as outpatient #PreE with severe features, possibly eclampsia vs chronic seizure disorder - BP elevated > 160 systolic at delivery and immediately post , had one episode of 176/126 this morning, all other BPs have been 120s-130s/80s - AST 158, ALT 180, Pr/Cr 0.4 - s/p Mag for 24 hours - will monitor closely, BPs have been well controlled since finishing Mag #Leukocytosis - WBC 19.2, up from 9.9 at admit - likely reactive from seizure activity, VSS and afebrile, no acute signs of infection, will monitor closely #Elevated LFTs - Likely 2/2 PreE vs seizure activity - hep panel negative #hx of glaucoma - family disclosed that patient has a hx of glaucoma, was on medication before but has not been recently - tonometer showed pressure of 20 in left eye and 30 in right eye - consider outpatient ophtho follow up #Anemia of , stable - HB 12 at admit, down to 9.8 , lochia as expected, will monitor. Asymptomatic. #Recent immigrant from [facility] - Unknown TB status, PCP recommended testing, no sxs, will need f/u post- Dispo: PPD #3, clear for d/c from neuro perspective. D/c today with follow up with neuro and routine pp follow up Fluids: LR @125cc/hr Code: Full Diet: Regular
[2019-06-21] MEDS: levETIRAcetam 500 MG TAB PO SCH (08:21)
[2019-06-21] MEDS: Docusate Calcium (SURFAK) 240 MG CAP PO SCH (08:21)
[2019-06-21] MEDS: Prenatal Vitamin 1 TAB PO SCH (08:21)
[2019-06-21] MEDS: Ferrous Sulfate 325 MG TAB PO SCH (08:21)
[2019-06-21 09:35] VITALS: BP 153/89; TEMP 97.8
--- NOTE | 2019-06-21 17:18 | EKG ---
Test Reason : Blood Pressure : / mmHG Vent. Rate : 083 BPM Atrial Rate : 083 BPM P-R Int : 140 ms QRS Dur : 070 ms QT Int : 366 ms P-R-T Axes : 063 071 058 degrees QTc Int : 430 ms Normal sinus rhythm with sinus arrhythmia Possible Left atrial enlargement Borderline ECG No previous ECGs available Confirmed by HAILY ÁLVAREZ (2) on 06/21/2019 5:18:06 PM Referred By: Confirmed By:HAILY ÁLVAREZ
== END 2019-06-21 13:10 | disposition home or self-care (01) | DRG 806 ==
LOC: L&D/OP 10:03 → L&D 12:39 → 3SW 06-20 08:03
PROVIDERS: ADMIT Obstetrics & Gynecology; ATTEND Obstetrics & Gynecology
PROC: 10E0XZZ Delivery of Products of Conception, External Approach (ICD-10-PCS; principal; 2019-06-18)
PROC: 10907ZC Drainage of Amniotic Fluid, Therapeutic from Products of Conception, Via Natural or Artificial Opening (ICD-10-PCS; 2019-06-18)
PROC: 3E0234Z Introduction of Serum, Toxoid and Vaccine into Muscle, Percutaneous Approach (ICD-10-PCS; 2019-06-19)
DX: O99.02 Anemia complicating childbirth (principal); O99.354 Diseases of the nervous system complicating childbirth; Z37.0 Single live birth; Z3A.37 37 weeks gestation of pregnancy; O70.0 First degree perineal laceration during delivery; O14.15 Severe pre-eclampsia, complicating the puerperium; G40.409 Other generalized epilepsy and epileptic syndromes, not intractable, without status epilepticus; O99.89 Other specified diseases and conditions complicating pregnancy, childbirth and the puerperium; R74.0 Nonspecific elevation of levels of transaminase and lactic acid dehydrogenase [LDH]; H40.9 Unspecified glaucoma; D64.9 Anemia, unspecified; Z86.19 Personal history of other infectious and parasitic diseases; Z23 Encounter for immunization
CPT/HCPCS: 36415; 51702; 70551; 70553; 80053; 80074; 80306; 80307; 82570; 83735; 84146; 84156; 84443; 84484; 85025; 85027; 86780; 86850; 86900; 86901; 87340; 93005; 93010; A4353; J0595; J1953; J2001; J2590; J3475; J3490

== ENCOUNTER 2020-10-16 21:40 | Emergency (ER) | payer MEDICAID ==
[2020-10-17 06:55] LABS: SARS-CoV-2 PCR by NAA Not Detected (NotDetected)
== END 2020-10-16 22:20 | disposition home or self-care (01) ==
LOC: ERS 21:40
DX: J02.9 Acute pharyngitis, unspecified (principal); R50.9 Fever, unspecified; J34.89 Other specified disorders of nose and nasal sinuses; R09.81 Nasal congestion; R05 Cough; R06.02 Shortness of breath; M79.10 Myalgia, unspecified site; Z20.822 Contact with and (suspected) exposure to COVID-19
CPT/HCPCS: 87635; 99283; U0003; U0005

== ENCOUNTER 2021-02-25 05:35 | Emergency (ER) | payer MEDICAID ==
[2021-02-25 06:27] LABS: #Basophils 0.1 thou/uL (0.0-0.2); #Lymphocytes 1.1 thou/uL (1.20-3.40); #Monocytes 0.5 thou/uL (0.11-0.59); #Neutrophils 7.2 thou/uL (1.40-6.50); %Basophils 0.7 % (0.0-1.0); %Eosinophils 0.2 % (0.0-10.0); %Lymphocytes 12.9 % (21.0-51.0); %Monocytes 5.1 % (0.0-10.0); %Neutrophils 81.1 % (42.0-75.0); Hemoglobin 10.7 g/dL (12.0-16.0); Mean Corpuscular HGB CONC 31.5 g/dL (32.0-36.0); Mean Corpuscular Hemoglobin 26.9 pg (27.0-31.0); Mean Corpuscular Volume 85.3 fL (78.0-98.0); Platelet Count 208 thou/uL (130-400); RBC Distribution Width 11.8 % (11.5-14.5); White Blood Cell (WBC) Count 8.9 thou/uL (4.8-10.8)
[2021-02-25 06:47] LABS: ALT (SGPT) 235 U/L (8-55); AST (SGOT) 141 U/L (5-34); Albumin 3.4 g/dL (3.5-5.0); Alkaline Phosphatase 323 U/L (40-110); Anion Gap 16 mmol/L (10-20); BUN (Urea Nitrogen) 6 mg/dL (7.0-18.7); Calc. Creatinine Clearance 0 mL/min (70-130); Calcium 8.6 mg/dL (7.8-10.44); Carbon Dioxide 22 mmol/L (22-29); Chloride 100 mmol/L (98-107); Globulin 3.7 g/dL (2.4-3.5); Glucose 81 mg/dL (70-105); Potassium 3.7 mmol/L (3.5-5.1); Protein, Total 7.1 g/dL (6.0-8.3); Sodium 134 mmol/L (136-145)
== END 2021-02-25 06:46 | disposition short-term general hospital (02) ==
LOC: ERS 05:35
DX: O60.03 Preterm labor without delivery, third trimester (principal); Z3A.37 37 weeks gestation of pregnancy
CPT/HCPCS: 80053; 85025; 86850; 86900; 86901